=== PATIENT | female | born 1985 | race Caucasian/White ===

== ENCOUNTER 2017-06-08 11:44 | Emergency (ER) | payer OTHER ==
[~2017-06-08] VITALS: Ht 162.6 cm; Wt 49.9 kg
[~2017-06-08 11:44] MED LIST: IBUP600T16 PO
[2017-06-08 12:21] LABS: BASO # 0.1 x10^3/uL (0.0-0.2); BASO % 2 % (0-3); EOS # 0.3 x10^3/uL (0.0-0.7); EOS % 4 % (0-3); HEMATOCRIT 40.3 % (36.0-47.0); HEMOGLOBIN 13.9 g/dL (12.0-15.5); LYMPH # 2.2 x10^3/uL (1.0-4.8); LYMPH % 33 % (24-48); MEAN CORPUSCULAR HEMOGLOBIN 30 pg (25-35); MEAN CORPUSCULAR HGB CONC 35 g/dL (31-37); MEAN CORPUSCULAR VOLUME 85 fL (79-100); MONO # 0.4 x10^3/uL (0.0-1.1); MONO % 6 % (0-9); NEUT # 3.7 x10^3uL (1.8-7.7); NEUT % 56 % (31-73); PLATELET COUNT 249 x10^3/uL (140-400); RED BLOOD COUNT 4.72 x10^6/uL (3.50-5.40); WHITE BLOOD COUNT 6.6 x10^3/uL (4.0-11.0)
--- NOTE | 2017-06-08 12:24 | RAD ---
INDICATION: cp COMPARISON: None. FINDINGS: Single view of chest obtained. No focal airspace consolidation. Mediastinal contour is unremarkable. No gross osseous destructive lesion. IMPRESSION: No focal airspace consolidation or edema.
[2017-06-08] MEDS ORDERED: ASPIRIN 81 MG TAB.CHEW PO ONE (12:30)
[2017-06-08 12:35] LABS: ALBUMIN 4.3 g/dL (3.4-5.0); ALBUMIN/GLOBULIN RATIO 1.1 (1.0-1.7); CALCIUM 9.1 mg/dL (8.5-10.1); CREATININE 0.8 mg/dL (0.6-1.0); GFR 83.7; POTASSIUM 3.7 mmol/L (3.5-5.1); TOTAL BILIRUBIN 0.7 mg/dL (0.2-1.0); TOTAL PROTEIN 8.3 g/dL (6.4-8.2)
[2017-06-08 12:41] LABS: BARBITURATES NEG (NEG); BENZODIAZEPINES NEG (NEG); CANNABINOIDS NEG (NEG); COCAINE NEG (NEG); METHADONE NEG (NEG); OPIATES NEG (NEG); PHENCYCLIDINE NEG (NEG)
[2017-06-08 12:42] LABS: AMPHETAMINE/METHAMPHETAMINE NEG (NEG)
[2017-06-08] MEDS ORDERED: KETOROLAC 30 MG/ML VIAL. IV ONE (12:45)
[2017-06-08 12:47] LABS: BACTERIA,URINE 0 /HPF (0-FEW); BILIRUBIN,URINE NEG (NEG); CLARITY,URINE CLEAR; COLOR,URINE YELLOW; GLUCOSE,URINE NEG (NEG); NITRITE,URINE NEG (NEG); RBC,URINE RARE /HPF (0-2); SQUAMOUS EPITHELIAL CELL,UR OCC /LPF; UROBILINOGEN,URINE 0.2 mg/dL (0.2 mg/dL); WBC,URINE RARE /HPF (0-4)
--- NOTE | 2017-06-08 13:07 | PHYS DOC ---
General Chief Complaint: CHEST PAIN Stated Complaint: CHEST PAIN Time Seen by MD: 11:50 Source: patient Exam Limitations: no limitations Problems: History of Present Illness Initial Comments Patient is a 31-year-old female who comes to the ED complaining of left lateral chest discomfort. Patient states that for the past 2 days she's had discomfort pointing to her left lateral upper ribs at the midaxillary line. She states that last night around 12:48 AM while taking about the discomfort she noticed left arm aching as well. She denies associated nausea vomiting diaphoresis or dyspnea, denies any cough or prior similar symptoms. 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 Patient denies ability to reproduce these symptoms with position and deep breaths or other means, she has never been a smoker and has no medical problems and denies family history of coronary artery disease. No pre-arrival treatment she denies any calf pain or swelling and does not take oral contraceptives as her is status post vasectomy. She admits to being very nervous and she feels like her symptoms are "nothing" but has come for evaluation under instructions of [facility]. She drinks a large cup of coffee daily in the mornings but states her last caffeine intake was around 8 or 9 AM. Her discomfort is described as constant, tight, 1 out of 10 no exacerbating or relieving factors known. Patient denies any fever chills body aches headache or palpitations. No recent illnesses or daily medications. ED vital signs: 98.4, 94, 16, 150/83 (quickly corrects to 118/70 once the patient relaxes) 97% room air. 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 Patient received aspirin by mouth on arrival she refused Toradol Timing/Duration: constant (two days) Severity: mild Associated Symptoms: chest pain Allergies: Coded Allergies: No Known Drug Allergies (Unverified , 06/08/17) Past Medical History Medical History: no pertinent history Surgical History: other ( section) Family History Significant Family History: no pertinent family hx Social History Smoker: non-smoker Alcohol: none Drugs: none Review of Systems Constitutional: denies chills, denies diaphoresis, denies fever, denies malaise , denies weakness Respiratory: denies cough, denies orthopnea, denies shortness of breath, denies stridor, denies wheezing Cardiovascular: see HPI, denies edema, denies palpitations, denies syncope Gastrointestinal: denies abdominal pain, denies diarrhea, denies nausea, denies vomiting Genitourinary: denies dysuria, denies frequency, denies hematuria Musculoskeletal: see HPI, denies back pain, denies joint swelling, denies neck pain Psychiatric/Neurological: denies headache, denies numbness, denies paresthesia , denies weakness Hematologic/Lymphatic: denies anemia, denies blood clots, denies easy bleeding , denies easy bruising Physical Exam General Appearance: WD/WN, no apparent distress (mildly anxious) Eyes: bilateral eye normal inspection, bilateral eye PERRL, bilateral eye EOMI Ear, Nose, Throat: hearing grossly normal, normal ENT inspection, normal pharynx Neck: non-tender, full range of motion, supple Respiratory: chest non-tender, lungs clear, normal breath sounds, no respiratory distress Cardiovascular: normal peripheral pulses, regular rate, rhythm, no edema, no JVD, no murmur (/g/r) Gastrointestinal: normal bowel sounds, non tender, soft Back: normal inspection, no CVA tenderness, no vertebral tenderness Extremities: normal range of motion, non-tender, normal inspection, no pedal edema, no calf tenderness 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 Interpreted by Dr. Mireles. PATIENT: MAHENDRA ROSENTHAL ACCOUNT: [id number] : 1985 LOCATION: ER AGE: 31 SEX: F EXAM STATUS: REG ER ORD. PHYSICIAN: DALE MIRELES DO REASON: cp PROCEDURE: PORTABLE CHEST 1V INDICATION: cp COMPARISON: None. FINDINGS: Single view of chest obtained. No focal airspace consolidation. Mediastinal contour is unremarkable. No gross osseous destructive lesion. IMPRESSION: No focal airspace consolidation or edema. DICTATED AND SIGNED BY: KRISH GARCÍA MD DATE: 06/08/17 1220 CC: JERZY DE MD; DALE MIRELES DO ~ I discussed patient lab findings with her at length. CBC unremarkable, d-dimer 0.22, CMP CK lipase urinalysis all unremarkable. Urine negative urine drug screen negative troponin less than 0.017. I discussed further workup and with persistent symptoms although mild the opportunity for observation admission. I discussed the possibility of valvular as well as musculoskeletal or other possible infectious/autoimmune reasons for her discomfort. I discussed serial cardiac enzymes and echocardiogram and cardiology consultation as possible further workup however the patient states she is reassured that there is nothing emergent going on and she would like to go home. I discussed signs and symptoms to monitor as well as indication for urgent return to the emergency department. I advised her to follow-up at [facility] as outpatient cardiology or other referrals may be indicated deferring to her primary care physician. She expressed agreement and understanding of the treatment plan and agreed to follow-up for further workup as outpatient if needed. Departure Time of Disposition: 13:06 Disposition: 01 HOME, SELF-CARE Diagnosis: chest pain noncardiac Condition: GOOD Patient Instructions: Chest Pain (Nonspecific), [id number] Additional Instructions: As discussed, you have a lot of life changes and stress could be a contributing factor. Rest, no strenuous activity. Avoid caffeine and stimulant medications and aggressively hydrate with Gatorade or water. [id number] Tylenol and ibuprofen as needed. Follow-up at [facility] in 1-2 days for recheck and further evaluation as an outpatient if needed. Return to ED with new or changing symptoms. DALE MIRELES DO Jun 08, 2017 13:07
--- NOTE | 2017-06-08 13:11 | EKG ---
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
[2017-06-08 13:23] VITALS: BP 105/70
== END 2017-06-08 13:25 | disposition home or self-care (01) ==
LOC: ER 11:44
DX: R07.89 Other chest pain (principal); M79.602 Pain in left arm
CPT/HCPCS: 36415; 71010; 80053; 80307; 81001; 81025; 82550; 83690; 84484; 85025; 85379; 93005; 99285-25; G0479